=== PATIENT | male | born 1985 | race Caucasian/White ===

== ENCOUNTER 2017-01-19 09:41 | Emergency (ER) | payer OTHER ==
[2017-01-19 09:45] VITALS: BMI 24.2
[2017-01-19 09:46] VITALS: RESP 18; O2SAT 99
[2017-01-19] MEDS ORDERED: Sodium Chloride 0.9% 1,000 ML IV ONE (10:13)
[2017-01-19] MEDS ORDERED: Alum-Mag Hydrox-Simethicone Susp (30 mL) PO STA (10:15)
[2017-01-19] MEDS ORDERED: Sodium Chloride 0.9% 1,000 ML ONE (10:23)
[2017-01-19] MEDS ORDERED: Alum-Mag Hydrox-Simethicone Susp (30 mL) ONE (10:23)
--- NOTE | 2017-01-19 10:37 | C.PDOC ---
History Of Present Illness The patient, 31 y/o male, presents to the ED for evaluation of abdominal pain which began last night. Patient also reports associated nausea. Patient states he tried taking [place] but found no relief. When asked about his normal diet, patient states, " I eat everything and candy." He reports he was able to have a normal bowel movement today and denies fever, chills, vomiting, diarrhea , or testicular pain. Time Seen by Provider: 01/19/17 09:49 Chief Complaint (Nursing): Abdominal Pain History Per: Patient History/Exam Limitations: no limitations Onset/Duration Of Symptoms: Hrs Current Symptoms Are (Timing): Still Present Radiation Of Pain To:: None Quality Of Discomfort: "Pain" Associated Symptoms: Nausea. denies: Fever, Chills, Vomiting, Diarrhea Exacerbating Factors: None Alleviating Factors: None Last Bowel Movement: Today Additional History Per: Patient Past Medical History Reviewed: Historical Data, Nursing Documentation, Vital Signs Vital Signs: Last Vital Signs Temp 98.5 F 01/19/17 13:13 Pulse 61 01/19/17 13:13 Resp 18 01/19/17 13:13 BP 119/61 01/19/17 13:13 Pulse Ox 99 01/19/17 13:30 - Medical History PMH: No Chronic Diseases Surgical History: No Surg Hx Family History: States: Unknown Family Hx - Social History Hx Alcohol Use: Yes Hx Substance Use: No - Immunization History Hx Tetanus Toxoid Vaccination: No Hx Influenza Vaccination: No Hx Pneumococcal Vaccination: No Review Of Systems Except As Marked, All Systems Reviewed And Found Negative. Constitutional: Negative for: Fever, Chills Gastrointestinal: Positive for: Nausea, Abdominal Pain. Negative for: Vomiting , Diarrhea Physical Exam - Physical Exam Appears: Non-toxic, No Acute Distress Skin: Normal Color, Warm, Dry Head: Atraumatic, Normacephalic Eye(s): bilateral: Normal Inspection, EOMI Oral Mucosa: Moist Neck: Normal ROM, Supple Chest: Symmetrical, No Deformity, No Tenderness Cardiovascular: Rhythm Regular, No Murmur Respiratory: Normal Breath Sounds, No Rales, No Rhonchi, No Wheezing Gastrointestinal/Abdominal: Tenderness (to b/l lower quadrants on palpation ), No Guarding, No Rebound Back: Normal Inspection, No Vertebral Tenderness, No Paraspinal Tenderness Extremity: Normal ROM, Capillary Refill (less than 2 seconds) Neurological/Psych: Oriented x3, Normal Speech, Normal Cognition Gait: Steady ED Course And Treatment - Laboratory Results Result Diagrams: 01/19/17 10:43 01/19/17 10:43 O2 Sat by Pulse Oximetry: 99 (on RA) Pulse Ox Interpretation: Normal - Other Rad Abdomen Obstructive Series XR X-Ray: Interpreted by Me, Viewed By Me, Read By Radiologist Interpretation: Accession No. : [id number]. Patient Name / ID : KHURRAM HOWELL / [id number]. Exam Date : 01/19/2017 10:09:30 ( Approved ). Study Comment : Sex / Age : M / 31Y. Creator : Kareem Roy. Dictator : Kareem Roy. Metallurgical Laboratory Assistant : Collections Analyst : Kareem Roy. Approver2 : Report Date : 01/19/2017 12:44:43. My Comment : . PROCEDURE: Radiographs of the chest and abdomen (obstructive series). HISTORY: abd pain. COMPARISON: No prior. TECHNIQUE: AP radiograph of the chest, with upright and supine radiographs of the abdomen. FINDINGS: CHEST: Lungs: Clear. Cardiovascular: Normal size heart. No pulmonary vascular congestion. Pleura: No pleural fluid. No pneumothorax. Other findings: None. ABDOMEN AND PELVIS: Bowel: Unremarkable bowel gas pattern. No evidence of mechanical obstruction. Free air : None. Bones: Unremarkable. Other findings: None. IMPRESSION: Mild constipation. Otherwise unremarkable radiographs of chest and abdomen. No evidence of mechanical bowel obstruction. - CT Scan/US CT A/P Other Rad Studies (CT/US): Interpreted By Me, Read By Radiologist, Radiology Report Reviewed CT/US Interpretation: Accession No. : [id number]. Patient Name / ID : KHURRAM HOWELL / [id number]. Exam Date : 01/19/2017 11:46:33 ( Approved ). Study Comment : Sex / Age : M / 31Y. Creator : Kareem Roy. Dictator : Kareem Roy. Metallurgical Laboratory Assistant : Collections Analyst : Kareem Roy. Approver2 : Report Date : 01/19/2017 12:27:11. My Comment : . PROCEDURE: CT Abdomen and Pelvis with contrast. HISTORY: abd pain. COMPARISON: None. TECHNIQUE: Axial and reformatted coronal and sagittal CT images of the abdomen and pelvis were obtained after IV contrast administration. This CT exam was performed using one or more of the following dose reduction techniques: Automated exposure control, adjustment of the mA and/or kv according to patient size, and/ or use of iterative reconstruction technique. Contrast dose: 100 mL Visipaque 320. Radiation dose: Total exam DLP = 313.55 mGy-cm. FINDINGS: LOWER THORAX : Unremarkable. LIVER: Mild hepatomegaly noted. . No gross lesion or ductal dilatation. GALLBLADDER AND BILE DUCTS: Unremarkable. PANCREAS: Unremarkable. No gross lesion or ductal dilatation. SPLEEN: Unremarkable. ADRENALS: Unremarkable. No mass. KIDNEYS AND URETERS: Unremarkable. No hydronephrosis. No solid mass. VASCULATURE: Unremarkable. No aortic aneurysm. BOWEL: Boly-za-tjcejvql constipation more prominent at the ascending and transverse colon. The left colon is partially collapsed. There is no evidence of small bowel obstruction. APPENDIX: The appendix is not clearly visualized. No definite evidence of appendicitis. PERITONEUM: Unremarkable. No free fluid. No free air. LYMPH NODES: Unremarkable. No enlarged lymph nodes. BLADDER: Unremarkable. REPRODUCTIVE: Unremarkable. BONES: No acute fracture. OTHER FINDINGS: None. IMPRESSION: No definite evidence of appendicitis. Koyt-nm-czcjxzly right colon constipation. No evidence of bowel obstruction. Progress Note: labs, Obstructive Series XR, and CT A/P ordered and reviewed. Patient received Maalox PO, Protonox IV, Toradol IV, and IV Fluids. On re- evlauation, pt notes pain improvement. Tolerating PO. Copies of CT given, instructed follow up with PMD or return to ER if symptoms persist or worsen. Disposition - Disposition Disposition: HOME/ ROUTINE Disposition Time: 12:33 Condition: STABLE Additional Instructions: Increase fiber in your diet and water. Follow up with your primary medical doctor or clinic in 2-5 days for further evaluation. Take medications as prescribed. Return to the emergency department at any time if symptoms persist or worsen. Prescriptions: Polyethylene Glycol 3350 [Miralax] 17 gm PO DAILY #85 gm Instructions: Constipation (ED), High Fiber Diet (ED) Forms: Work Excuse - Clinical Impression Clinical Impression: Abdominal pain, Constipation - PA / BRAND ATTENDANT / Resident Statement MD/DO has reviewed & agrees with the documentation as recorded. - Scribe Statement The provider has reviewed the documentation as recorded by the Scribe (Karen Rodriguez) All medical record entries made by the Scribe were at my direction and personally dictated by me. I have reviewed the chart and agree that the record accurately reflects my personal performance of the history, physical exam, medical decision making, and the department course for this patient. I have also personally directed, reviewed, and agree with the discharge instructions and disposition.
[2017-01-19 10:49] LABS: BASO # 0.1 K/uL (0.0-0.2); BASO % 0.5 % (0.0-2.0); EOS # 0.2 K/uL (0.0-0.7); EOS % 1.4 % (0.0-4.0); HEMATOCRIT 46.8 % (35.0-51.0); LYMPH % 8.2 % (20.0-40.0); MEAN CELL VOLUME 89.3 fL (80.0-94.0); MEAN CORPUSCULAR HEMOGLOBIN 28.9 pg (27.0-31.0); MEAN CORPUSCULAR HGB CONC 32.4 g/dL (33.0-37.0); MEAN PLATELET VOLUME 8.8 fL (7.2-11.7); MONO # 0.6 K/uL (0.0-0.8); PLATELET COUNT 276 K/uL (130-400); RED CELL DISTRIBUTION WIDTH 13.2 % (11.5-14.5); WHITE BLOOD COUNT 12.1 K/uL (4.8-10.8)
[2017-01-19 10:54] LABS: RBC URINE 1 /hpf (0-3); URINE BILIRUBIN NEGATIVE (NEGATIVE); URINE BLOOD NEGATIVE (NEGATIVE); URINE COLOR Yellow (YELLOW); URINE GLUCOSE (UA) NORMAL (Normal); URINE KETONE NEGATIVE (NEGATIVE); URINE LEUKOCYTE ESTERASE NEG Leu/uL (Negative); URINE PROTEIN NEGATIVE (NEGATIVE); URINE UROBILINOGEN NORMAL mg/dL (0.2-1.0); WBC URINE < 1 /hpf (0-5)
[2017-01-19 10:56] LABS: CHLORIDE 95 mmol/L (98-107)
[2017-01-19 10:57] LABS: POTASSIUM 3.6 mmol/L (3.6-5.2); SODIUM 140 mmol/L (132-148)
[2017-01-19 10:59] LABS: ALB/GLOB RATIO 1.3 (1.0-2.1); ALKALINE PHOSPHATASE 52 U/L (38-126); ALT/SGPT 25 U/L (21-72); AST/SGOT 30 U/L (17-59); BILIRUBIN,TOTAL 0.4 mg/dL (0.2-1.3); BLOOD UREA NITROGEN 13 mg/dL (9-20); CALCIUM 8.9 mg/dl (8.6-10.4); CARBON DIOXIDE 29 mmol/L (22-30); GFR AFRICAN-AMERICAN > 60; GLUCOSE,RANDOM 91 mg/dL (75-110); TOTAL PROTEIN 7.8 g/dL (6.3-8.3)
[2017-01-19] MEDS ORDERED: Morphine 4 MG/ML VIAL ONE (11:16)
[2017-01-19 11:27] LABS: EOSINOPHIL 1 % (0-4); NEUTROPHIL 83 % (50-75); TOTAL CELLS COUNTED 100
[2017-01-19] MEDS ORDERED: Iodixanol 320 MG/ML 100 ML BOTTLE IV ONE (11:27)
--- NOTE | 2017-01-19 12:28 | CT ---
PROCEDURE: CT Abdomen and Pelvis with contrast HISTORY: abd pain COMPARISON: None. TECHNIQUE: Axial and reformatted coronal and sagittal CT images of the abdomen and pelvis were obtained after IV contrast administration. This CT exam was performed using one or more of the following dose reduction techniques: Automated exposure control, adjustment of the mA and/or kv according to patient size, and/or use of iterative reconstruction technique. Contrast dose: 100 mL Visipaque 320 Radiation dose: Total exam DLP = 313.55 mGy-cm. FINDINGS: LOWER THORAX: Unremarkable. LIVER: Mild hepatomegaly noted. . No gross lesion or ductal dilatation. GALLBLADDER AND BILE DUCTS: Unremarkable. PANCREAS: Unremarkable. No gross lesion or ductal dilatation. SPLEEN: Unremarkable. ADRENALS: Unremarkable. No mass. KIDNEYS AND URETERS: Unremarkable. No hydronephrosis. No solid mass. VASCULATURE: Unremarkable. No aortic aneurysm. BOWEL: Xlon-ct-yhxhfceu constipation more prominent at the ascending and transverse colon. The left colon is partially collapsed. There is no evidence of small bowel obstruction. APPENDIX: The appendix is not clearly visualized. No definite evidence of appendicitis. PERITONEUM: Unremarkable. No free fluid. No free air. LYMPH NODES: Unremarkable. No enlarged lymph nodes. BLADDER: Unremarkable. REPRODUCTIVE: Unremarkable. BONES: No acute fracture. OTHER FINDINGS: None. IMPRESSION: No definite evidence of appendicitis. Ovdj-ou-rtnydtkv right colon constipation. No evidence of bowel obstruction.
--- NOTE | 2017-01-19 12:46 | RAD ---
PROCEDURE: Radiographs of the chest and abdomen (obstructive series) HISTORY: abd pain COMPARISON: No prior. TECHNIQUE: AP radiograph of the chest, with upright and supine radiographs of the abdomen. FINDINGS: CHEST: Lungs: Clear. Cardiovascular: Normal size heart. No pulmonary vascular congestion. Pleura: No pleural fluid. No pneumothorax. Other findings: None. ABDOMEN AND PELVIS: Bowel: Unremarkable bowel gas pattern. No evidence of mechanical obstruction. Free air: None. Bones: Unremarkable. Other findings: None. IMPRESSION: Mild constipation. Otherwise unremarkable radiographs of chest and abdomen. No evidence of mechanical bowel obstruction.
[2017-01-19] MEDS ORDERED: Magnesium Citrate Oral SOL (300 ml) PO ONE (12:48)
[2017-01-19] MEDS ORDERED: Magnesium Citrate Oral SOL (300 ml) ONE (13:02)
[2017-01-19 13:14] VITALS: BP 119/61; PULSE 61; TEMP 98.5
== END 2017-01-19 13:14 | disposition home or self-care (01) ==
LOC: C.ER 09:41
DX: K59.00 Constipation, unspecified (principal)
CPT/HCPCS: 74022; 74177; 80053; 81001; 83690; 85025; 96361; 96374; 96375; 99285; C9113; J1885; J2270; J7040; Q9967

== ENCOUNTER 2017-03-09 08:55 | Emergency (ER) | payer SELFPAY ==
[2017-03-09 08:55] VITALS: BMI 24.2
[2017-03-09 09:02] VITALS: TEMP 98.2; O2SAT 100
--- NOTE | 2017-03-09 09:17 | C.PDOC ---
History Of Present Illness 31 year old patient presents to the ED complaining of sharp right sided chest pain for the past week. Patient reports he was pushing on a heavy trailer door that was stuck about 9 days ago. The pain began 2 days later. Patient states the pain is worse on deep inspiration and movement, but alleviated by rest. Patient denies any drug use, family history of cardiac hx early in life, numbness, weakness, nausea, vomiting or shortness of breath. Time Seen by Provider: 03/09/17 09:08 Chief Complaint (Nursing): Chest Pain History Per: Patient History/Exam Limitations: no limitations Onset/Duration Of Symptoms: Other (1 week) Current Symptoms Are (Timing): Still Present Context: Other Severity: Mild Pain Scale Rating Of: 3 Quality: Sharp, "Pain" Exacerbating Factors: Movement, Deep Breathing Alleviating Factors: Rest Recent travel outside of the [place]: No Past Medical History Reviewed: Historical Data, Nursing Documentation, Vital Signs Vital Signs: Last Vital Signs Temp 98.2 F 03/09/17 09:01 Pulse 66 03/09/17 11:30 Resp 19 03/09/17 11:30 BP 117/66 03/09/17 11:30 Pulse Ox 100 03/09/17 12:55 Family History: States: Unknown Family Hx - Social History Hx Alcohol Use: Yes Hx Substance Use: No - Immunization History Hx Tetanus Toxoid Vaccination: No Hx Influenza Vaccination: No Hx Pneumococcal Vaccination: No Review Of Systems Except As Marked, All Systems Reviewed And Found Negative. Cardiovascular: Positive for: Chest Pain (right sided) Respiratory: Negative for: Shortness of Breath Gastrointestinal: Negative for: Nausea, Vomiting Neurological: Negative for: Weakness, Numbness Physical Exam - Physical Exam Appears: Well, Non-toxic, No Acute Distress Skin: Warm, Dry Head: Atraumatic, Normacephalic Eye(s): bilateral: Normal Inspection Ear(s): Bilateral: Normal Nose: Normal Oral Mucosa: Moist Tongue: Normal Appearing Lips: Normal Appearing Throat: Normal Neck: Normal ROM, Supple Chest: Symmetrical, Tenderness (right side of chest on palpation) Cardiovascular: Rhythm Irregular Respiratory: Normal Breath Sounds, No Rales, No Rhonchi, No Wheezing Gastrointestinal/Abdominal: Soft, No Tenderness Back: Normal Inspection, No CVA Tenderness Extremity: Normal ROM Neurological/Psych: Oriented x3, Normal Speech, Normal Motor, Normal Sensation Gait: Steady ED Course And Treatment - Laboratory Results Result Diagrams: 03/09/17 09:26 03/09/17 09:26 Lab Interpretation: No Acute Changes ECG: Viewed By Me (and Dr. Martin) ECG Rhythm: Sinus Bradycardia (with sinus arrhythmia) Rate From EC (bpm) O2 Sat by Pulse Oximetry: 100 (room air) Pulse Ox Interpretation: Normal - Radiology CXR: Interpreted by Me CXR Interpretation: Yes: No Acute Disease Progress Note: Plan: VBG, EKG, Labs, Chest x-ray, Toradol Disposition Counseled Patient/Family Regarding: Studies Performed, Diagnosis, Need For Followup, Rx Given - Disposition Referrals: [facility] [Outside] [facility] [Outside] Elia Esparza MD [Staff Provider] - Disposition: HOME/ ROUTINE Disposition Time: 11:02 Condition: STABLE Additional Instructions: FOLLOW UP WITH PMD/CLINIC AND DIRECTOR OF GROUP COUNSELING PROGRAM FOR FURTHER EVALUATION AND TREATMENT. IF SYMPTOMS GET WORSE OR ANY NEW CONCERNING SYMPTOMS DEVELOP RETURN TO ED. Prescriptions: Ibuprofen [Motrin Tab] 1 tab PO Q6H PRN #15 tab PRN Reason: Pain, Moderate (4-7) Instructions: Costochondritis (ED), Bradycardia (ED) Forms: General Discharge Instructions, Work Excuse - Clinical Impression Clinical Impression: Costochondritis, Bradycardia - PA / RETAIL MERCHANDISING SPECIALIST / Resident Statement MD/DO has reviewed & agrees with the documentation as recorded. - Scribe Statement The provider has reviewed the documentation as recorded by the Scribe Jennifer Rodriguez All medical record entries made by the Scribe were at my direction and personally dictated by me. I have reviewed the chart and agree that the record accurately reflects my personal performance of the history, physical exam, medical decision making, and the department course for this patient. I have also personally directed, reviewed, and agree with the discharge instructions and disposition.
[2017-03-09 09:33] LABS: VENOUS BLOOD GAS BASE EXCESS 1.6 mmol/L (0.0-2.0); VENOUS BLOOD GAS PCO2 56 mmHg (40-60); VENOUS BLOOD PH 7.32 (7.32-7.43)
[2017-03-09 09:34] LABS: EOS # 0.2 K/uL (0.0-0.7); EOS % 5.3 % (0.0-4.0); HEMATOCRIT 46.2 % (35.0-51.0); LYMPH # 1.3 K/uL (1.0-4.3); LYMPH % 30.9 % (20.0-40.0); MEAN CELL VOLUME 88.8 fL (80.0-94.0); MEAN CORPUSCULAR HEMOGLOBIN 29.3 pg (27.0-31.0); MEAN PLATELET VOLUME 8.4 fL (7.2-11.7); MONO # 0.3 K/uL (0.0-0.8); MONO % 7.8 % (0.0-10.0)
[2017-03-09 09:40] LABS: WHITE BLOOD COUNT 4.2 K/uL (4.8-10.8)
[2017-03-09 09:41] LABS: CHLORIDE 100 mmol/L (98-107)
[2017-03-09 09:42] LABS: POTASSIUM 4.4 mmol/L (3.6-5.2); SODIUM 141 mmol/L (132-148)
[2017-03-09 09:44] LABS: BILIRUBIN,TOTAL 0.8 mg/dL (0.2-1.3); CARBON DIOXIDE 30 mmol/L (22-30); GFR AFRICAN-AMERICAN > 60
[2017-03-09 09:45] LABS: ALB/GLOB RATIO 1.5 (1.0-2.1); ALKALINE PHOSPHATASE 45 U/L (38-126); ALT/SGPT 21 U/L (21-72); AST/SGOT 35 U/L (17-59); BLOOD UREA NITROGEN 12 mg/dL (9-20); CALCIUM 9.1 mg/dl (8.6-10.4); GLUCOSE,RANDOM 85 mg/dL (75-110); TOTAL PROTEIN 7.8 g/dL (6.3-8.3)
--- NOTE | 2017-03-09 11:23 | RAD ---
PROCEDURE: CHEST RADIOGRAPH, 1 VIEW HISTORY: chest pain COMPARISON: None available. FINDINGS: LUNGS: Mild venous congestion. PLEURA: No pneumothorax or pleural fluid seen. CARDIOVASCULAR: Normal. OSSEOUS STRUCTURES: No significant abnormalities. VISUALIZED UPPER ABDOMEN: Normal. OTHER FINDINGS: None. IMPRESSION: Mild venous congestion.
[2017-03-09 11:36] VITALS: BP 117/66; PULSE 66; RESP 19
--- NOTE | 2017-03-10 14:19 | CARD ---
APPROVED REPORT EKG Measurement Heart [id number] CT 126P77 [id number] <Conclusion> Sinus bradycardia with sinus arrhythmia Early repolarization Otherwise normal ECG
== END 2017-03-09 11:30 | disposition home or self-care (01) ==
LOC: C.ER 08:55
DX: M94.0 Chondrocostal junction syndrome [Tietze] (principal); R00.1 Bradycardia, unspecified
CPT/HCPCS: 71010; 80053; 82803; 84484; 85025; 93005; 96374; 99284; J1885

== ENCOUNTER 2017-07-01 07:36 | Emergency (ER) | payer OTHER ==
[2017-07-01 07:37] VITALS: BMI 24.2
[2017-07-01 07:46] VITALS: RESP 18
[2017-07-01] MEDS ORDERED: Sodium Chloride 0.9% 1,000 ML IV ONE (07:58)
[2017-07-01] MEDS ORDERED: Lidocaine 2% Inj (20ml) INFIL ONE (07:59)
[2017-07-01] MEDS ORDERED: HYDROmorphone 1 mg/ml ISec IVP STA ×2 (08:00→09:14)
[2017-07-01] MEDS ORDERED: Lidocaine 2% Inj (20ml) ONE (08:06)
[2017-07-01] MEDS ORDERED: HYDROmorphone 1 mg/ml ISec IM STA (08:12)
--- NOTE | 2017-07-01 08:12 | C.PDOC ---
History Of Present Illness 31 yo male come in for evaluation of Right facial painful mass gradually developed for past 3-4 days. Pt sts, " tried to squeeze it yesterday and it got worse today". Otherwise, pt denies previous sx in past, denies high fever, chills, headache, dizziness, visual changes, focal deficits, trismus, drooling, dysphagia, dyspnea, denies any other active complaints. Ambulate to ED for evaluation, not in any apparent distress. Time Seen by Provider: 07/01/17 07:49 Chief Complaint (Nursing): Abnormal Skin Integrity History Per: Patient Onset/Duration Of Symptoms: Gradual Past Medical History Reviewed: Historical Data, Nursing Documentation, Vital Signs Vital Signs: Last Vital Signs Temp 98.0 F 07/01/17 10:19 Pulse 80 07/01/17 10:19 Resp 18 07/01/17 10:19 BP 120/67 07/01/17 10:19 Pulse Ox 95 07/01/17 10:19 - Medical History PMH: No Chronic Diseases Surgical History: No Surg Hx Family History: States: No Known Family Hx - Social History Hx Tobacco Use: Yes Hx Alcohol Use: Yes Hx Substance Use: No - Immunization History Hx Tetanus Toxoid Vaccination: No Hx Influenza Vaccination: No Hx Pneumococcal Vaccination: No Review Of Systems Except As Marked, All Systems Reviewed And Found Negative. Constitutional: Negative for: Fever, Chills, Malaise ENT: Positive for: Other (Right facial swelling ). Negative for: Ear Discharge , Nose Discharge, Mouth Pain, Mouth Swelling, Throat Pain, Throat Swelling Cardiovascular: Negative for: Chest Pain Respiratory: Negative for: Cough, Shortness of Breath Gastrointestinal: Negative for: Nausea, Vomiting, Abdominal Pain, Diarrhea Skin: Positive for: Lesions Neurological: Negative for: Weakness, Numbness, Incoordination, Altered Mental Status, Headache, Dizziness Physical Exam - Physical Exam Appears: Well, Non-toxic, No Acute Distress Skin: Normal Color, Warm, Dry, Other ((+)Right mandibular tender mass 3#3 cm diameter (+) erythema, (+) flatulance, (+) diffuse Right lower facial edema, no proximal streaking.) Head: Normacephalic Eye(s): bilateral: PERRL Nose: No Flaring, No Discharge Oral Mucosa: Moist, No Drooling, No Trismus Tongue: Normal Appearing Lips: Normal Appearing Throat: No Erythema, No Exudate, No Drooling Neck: Supple Lymphatic: Adenopathy (Right submandibular) Cardiovascular: Rhythm Regular Respiratory: No Stridor, No Wheezing Extremity: Normal ROM, No Pedal Edema, No Deformity Neurological/Psych: Oriented x3, Normal Speech, Normal Motor, Normal Sensation, Normal Reflexes ED Course And Treatment - Laboratory Results Result Diagrams: 07/01/17 08:33 07/01/17 08:33 Lab Interpretation: No Acute Changes O2 Sat by Pulse Oximetry: 99 Pulse Ox Interpretation: Normal Progress Note: case discussed with residential program director and abscess I&D performed at bedside by surgical sales representative. On re-eavl at 10:00, pt restint comfortably, not in any apparent distress. Afebrile, hemodynamicaly stable. Pt tolerate Po well in ED. Non-toxic. PulsEOx 99% RA. Head: AT/NC. ENT: (+) Right lower facial abscess s/p I&D, no drooling, no trismus. Uvula midline, no edema. Neck: Supple, (+) mild Right submandibular LDN. Lungs: CTA B/L, BS equal B/L. Neurologicaly intact. Blood work review and no acute leukocytosis noted. Blood Cx- pending. Pt received Clindamycin. Pt advised on course of ds , wound care. ref. to return to ED in 2 days for wound re-evaluation. Return to Ed at any time if any worsening or new changes. Pt understand and agrees with discharges. Disposition Counseled Patient/Family Regarding: Studies Performed, Diagnosis, Need For Followup, Rx Given - Disposition Referrals: Lino Morales MD [Staff Provider] - Disposition: HOME/ ROUTINE Disposition Time: 10:07 Condition: STABLE Additional Instructions: Take medication as prescribed return to ED in 2 days for wound check. return to Ed at any time if any worsening or new changes. Prescriptions: Clindamycin [Cleocin] 300 mg PO Q6 #28 cap traMADol [Ultram] 50 mg PO TID #7 tab Instructions: Abscess Incision and Drainage (ED) Forms: [employer] (Italian), Work Excuse - Clinical Impression Clinical Impression: Abscess
[2017-07-01] MEDS ORDERED: Clindamycin 600mg/50ml NS 0 MG/0 ML BAG IVPB ONE (08:15)
[2017-07-01] MEDS ORDERED: Sodium Chloride 0.9% 1,000 ML ONE (08:15)
[2017-07-01 08:40] LABS: BASO % 0.4 % (0.0-2.0); EOS # 0.1 K/uL (0.0-0.7); EOS % 0.8 % (0.0-4.0); HEMATOCRIT 45.6 % (35.0-51.0); LYMPH # 0.9 K/uL (1.0-4.3); LYMPH % 8.8 % (20.0-40.0); MEAN CELL VOLUME 89.3 fL (80.0-94.0); MEAN CORPUSCULAR HEMOGLOBIN 29.9 pg (27.0-31.0); MEAN CORPUSCULAR HGB CONC 33.5 g/dL (33.0-37.0); MEAN PLATELET VOLUME 8.6 fL (7.2-11.7); MONO # 0.7 K/uL (0.0-0.8); MONO % 6.9 % (0.0-10.0); PLATELET COUNT 292 K/uL (130-400); RED CELL DISTRIBUTION WIDTH 13.4 % (11.5-14.5); WHITE BLOOD COUNT 10.7 K/uL (4.8-10.8)
[2017-07-01 09:02] LABS: CHLORIDE 101 mmol/L (98-107); POTASSIUM 4.6 mmol/L (3.6-5.2); SODIUM 141 mmol/L (132-148)
[2017-07-01 09:05] LABS: CARBON DIOXIDE 29 mmol/L (22-30); GFR AFRICAN-AMERICAN > 60
[2017-07-01 09:06] LABS: BLOOD UREA NITROGEN 11 mg/dL (9-20); CALCIUM 9.5 mg/dl (8.6-10.4); GLUCOSE,RANDOM 86 mg/dL (75-110)
[2017-07-01 09:41] LABS: EOSINOPHIL 1 % (0-4); NEUTROPHIL 83 % (50-75); TOTAL CELLS COUNTED 100
[2017-07-01 10:20] VITALS: BP 120/67; PULSE 80; TEMP 98
[2017-07-01 11:27] VITALS: O2SAT 99
== END 2017-07-01 11:38 | disposition home or self-care (01) ==
LOC: C.ER 07:36
DX: L02.01 Cutaneous abscess of face (principal)
CPT/HCPCS: 10060; 80048; 85025; 87040; 96361; 96365; 96372; 96375; 99283; J1170; J2930; J7040

== ENCOUNTER 2017-07-02 10:36 | Emergency (ER) | payer OTHER ==
[2017-07-02 10:36] VITALS: BMI 24.2
[2017-07-02 10:45] VITALS: TEMP 98.5; O2SAT 98
--- NOTE | 2017-07-02 11:30 | C.PDOC ---
History Of Present Illness 31 year old male presents to the ER for wound check. Patient was seen in the ER yesterday for abscess to right side of face and had an I&D done by the executive vice president of sales. Patient is compliant with his antibiotics and medications. Patient notes mild pain to the area without any discharge. Patient denies fever or chills. Time Seen by Provider: 07/02/17 11:11 Chief Complaint (Nursing): Wound Check History Per: Patient History/Exam Limitations: no limitations Onset/Duration Of Symptoms: Days Ago (Yesterday), Abscess Current Symptoms Are (Timing): Still Present Severity: Mild Recent travel outside of the [place]: No Additional History Per: Patient Past Medical History Reviewed: Historical Data, Nursing Documentation, Vital Signs Vital Signs: Last Vital Signs Temp 98.5 F 07/02/17 10:44 Pulse 70 07/02/17 11:36 Resp 16 07/02/17 11:36 BP 118/79 07/02/17 11:36 Pulse Ox 98 07/02/17 12:03 Family History: States: Unknown Family Hx - Social History Hx Tobacco Use: Yes Hx Alcohol Use: Yes Hx Substance Use: No - Immunization History Hx Tetanus Toxoid Vaccination: No Hx Influenza Vaccination: No Hx Pneumococcal Vaccination: No Review Of Systems Except As Marked, All Systems Reviewed And Found Negative. Constitutional: Negative for: Fever, Chills Skin: Positive for: Other Physical Exam - Physical Exam Appears: Non-toxic, No Acute Distress Skin: Warm, Dry, Other (Incisional wound to the right lower face. Wound packing in place. No erythema. No swelling.) Head: Atraumatic, Normacephalic Eye(s): bilateral: Normal Inspection, EOMI Oral Mucosa: Moist Throat: Normal, No Erythema Neck: Normal ROM Chest: Symmetrical Extremity: Bilateral: Atraumatic Neurological/Psych: Oriented x3, Normal Speech Gait: Steady ED Course And Treatment O2 Sat by Pulse Oximetry: 98 (RA) Pulse Ox Interpretation: Normal Medical Decision Making Medical Decision Making: Impression: * Wound check for I&D done to an abscess to the right side of the face yesterday Prior records reviewed: * Patient was seen in ED yesterday for abscess to right side of face and had I& D by executive vice president of sales. Patient presents for wound check. Plan: * Wound clean * Reassess Progress, Reassess and Dispo: Wound packing was removed by me, and area irrigated with NS. No purulent discharge expressed. Area cleansed and sterile dressing applied. Patient advised to keep area clean and dry and to finish antibiotics. Instruct to change dressing daily. Disposition Counseled Patient/Family Regarding: Diagnosis, Need For Followup - Disposition Referrals: [facility] [Outside] Disposition: HOME/ ROUTINE Disposition Time: 11:28 Condition: STABLE Additional Instructions: Keep area clean and dry. May wash gently with soap and water, do not use alcohol or iodine solution. Change dressing 1-2 times daily. Finish course of antibiotics. Return to hospital for any concerning symptoms Instructions: Acute Wound Care (ED) Forms: [employer] (Micronesian) - POA Present On Arrival: None - Clinical Impression Clinical Impression: Encounter for abscess packing removal - Scribe Statement The provider has reviewed the documentation as recorded by the Scribe Royal davenport All medical record entries made by the Scribe were at my direction and personally dictated by me. I have reviewed the chart and agree that the record accurately reflects my personal performance of the history, physical exam, medical decision making, and the department course for this patient. I have also personally directed, reviewed, and agree with the discharge instructions and disposition.
[2017-07-02 11:36] VITALS: BP 118/79; PULSE 70; RESP 16
== END 2017-07-02 11:36 | disposition home or self-care (01) ==
LOC: C.ER 10:36
DX: Z48.00 Encounter for change or removal of nonsurgical wound dressing (principal)

== ENCOUNTER 2017-10-02 04:03 | Emergency (ER) | payer OTHER ==
[2017-10-02 04:04] VITALS: BMI 24.2
[2017-10-02 04:23] VITALS: RESP 16; O2SAT 100
[2017-10-02] MEDS ORDERED: Apap-Butalbital-Caffeine 325-50-40mg Tab PO STA (05:47)
[2017-10-02] MEDS ORDERED: Apap-Butalbital-Caffeine 325-50-40mg Tab ONE (05:56)
[2017-10-02 06:35] VITALS: BP 125/79; PULSE 56; TEMP 98.8
--- NOTE | 2017-10-02 06:47 | C.PDOC ---
History Of Present Illness 32 year old male presents to the ED for evaluation of right-sided fontal headache which began 4 days ago. Patient states the pain is over his right eye and radiates to the back of his head. Patient notes history of similar symptoms in the past, and reports current symptoms are similar. He denies fever, chills, vision change, dizziness, nausea, vomiting, extremity numbness/weakness. Time Seen by Provider: 10/02/17 04:43 Chief Complaint (Nursing): Headache History Per: Patient History/Exam Limitations: no limitations Onset/Duration Of Symptoms: Days (4) Current Symptoms Are (Timing): Still Present Quality: Aching Associated Symptoms: denies: Nausea, Vomiting Additional History Per: Patient Past Medical History Reviewed: Historical Data, Nursing Documentation, Vital Signs Vital Signs: Last Vital Signs Temp 98.8 F 10/02/17 06:34 Pulse 56 L 10/02/17 06:34 Resp 16 10/02/17 06:34 BP 125/79 10/02/17 06:34 Pulse Ox 100 10/02/17 07:18 - Medical History PMH: No Chronic Diseases Surgical History: No Surg Hx Family History: States: Unknown Family Hx - Social History Hx Tobacco Use: Yes Hx Alcohol Use: Yes Hx Substance Use: No - Immunization History Hx Tetanus Toxoid Vaccination: No Hx Influenza Vaccination: No Hx Pneumococcal Vaccination: No Review Of Systems Eyes: Negative for: Vision Change Gastrointestinal: Negative for: Nausea, Vomiting Neurological: Positive for: Headache (right-sided ). Negative for: Dizziness Physical Exam - Physical Exam Appears: Non-toxic, No Acute Distress Skin: Normal Color, Warm, Dry, No Pale, No Rash Head: Atraumatic, Normacephalic, Other (no temporal artery tenderness) Eye(s): bilateral: Normal Inspection, PERRL, EOMI Ear(s): Bilateral: Normal Nose: Normal, No Discharge Oral Mucosa: Moist Throat: Normal, No Erythema, No Exudate Neck: Normal ROM, Supple Chest: Symmetrical, No Deformity, No Tenderness Cardiovascular: Rhythm Regular, No Friction Rub, No Murmur Respiratory: Normal Breath Sounds, No Rales, No Rhonchi, No Wheezing Gastrointestinal/Abdominal: Bowel Sounds (active), Soft, No Tenderness Back: Normal Inspection, No CVA Tenderness Extremity: Normal ROM, Capillary Refill (less than 2 seconds ), No Swelling Neurological/Psych: Oriented x3, Normal Speech, Normal Cognition, Normal Motor, Other (no focal deficits ) Gait: Steady ED Course And Treatment O2 Sat by Pulse Oximetry: 100 (on RA) Pulse Ox Interpretation: Normal Medical Decision Making Medical Decision Making: Fioricet PO and Reglan PO administered. On re-exam, the patient reports improvement of symptoms. Abdomen is soft, non-tender and tolerating PO well. Lungs are CTA, heart is RRR, Ambulatory in the ED with steady gait. Disposition - Disposition Referrals: [facility] [Outside] Disposition: HOME/ ROUTINE Disposition Time: 06:44 Condition: GOOD Additional Instructions: Follow up with the medical doctor within 1-2 days, return if worsened. 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 - Scribe Statement The provider has reviewed the documentation as recorded by the Scribe (Karen Rodriguez) All medical record entries made by the Scribe were at my direction and personally dictated by me. I have reviewed the chart and agree that the record accurately reflects my personal performance of the history, physical exam, medical decision making, and the department course for this patient. I have also personally directed, reviewed, and agree with the discharge instructions and disposition.
== END 2017-10-02 06:52 | disposition home or self-care (01) ==
LOC: C.ER 04:03
DX: R51 Headache (principal); Z87.891 Personal history of nicotine dependence

== ENCOUNTER 2017-11-22 01:18 | Emergency (ER) | payer MEDICAID, OTHER ==
[2017-11-22 01:19] VITALS: BMI 24.2
[2017-11-22 01:32] VITALS: BP 107/61; PULSE 73; RESP 16; TEMP 97.6; O2SAT 97
[2017-11-22] MEDS ORDERED: guaiFENesin DM 100 mg-10 mg/5 ml UD PO STA (01:50)
--- NOTE | 2017-11-22 01:53 | C.PDOC ---
History Of Present Illness 32 year old male presents to the ED for evaluation of a cough for the past week. Patient reports the cough is worsening now productive with yellowish sputum. Patient states he has not taken any medication for his symptoms. Patient denies fever, chills, CP, SOB, sick contacts. Time Seen by Provider: 11/22/17 01:36 Chief Complaint (Nursing): Cough, Cold, Congestion History Per: Patient History/Exam Limitations: no limitations Onset/Duration Of Symptoms: Days Current Symptoms Are (Timing): Still Present Location Of Pain: Throat Sick Contacts (Context): None Associated Symptoms: Cough, Sputum Ear Symptoms: Bilateral: None Severity: None Recent travel outside of the [place]: No Additional History Per: Patient Past Medical History Reviewed: Historical Data, Nursing Documentation, Vital Signs Vital Signs: Last Vital Signs Temp 97.6 F 11/22/17 01:29 Pulse 73 11/22/17 01:29 Resp 16 11/22/17 01:29 BP 107/61 11/22/17 01:29 Pulse Ox 97 11/22/17 02:00 - Medical History PMH: No Chronic Diseases Denies: Chronic Kidney Disease Surgical History: No Surg Hx Family History: States: Unknown Family Hx - Social History Hx Tobacco Use: Yes Hx Alcohol Use: Yes Hx Substance Use: No - Immunization History Hx Tetanus Toxoid Vaccination: No Hx Influenza Vaccination: No Hx Pneumococcal Vaccination: No Review Of Systems Constitutional: Negative for: Fever, Chills ENT: Negative for: Ear Pain, Nose Discharge, Throat Pain, Throat Swelling Cardiovascular: Negative for: Chest Pain Respiratory: Positive for: Cough, Sputum. Negative for: Shortness of Breath Gastrointestinal: Negative for: Vomiting, Abdominal Pain Skin: Negative for: Rash Neurological: Negative for: Weakness, Numbness, Headache Physical Exam - Physical Exam Appears: Non-toxic, No Acute Distress Skin: Normal Color, Warm, Dry Head: Atraumatic, Normacephalic Eye(s): bilateral: Normal Inspection Ear(s): Bilateral: Normal Nose: No Discharge, No Deformity Oral Mucosa: Moist Throat: Normal, No Erythema, No Exudate Neck: Normal ROM, Supple Chest: Symmetrical Cardiovascular: Rhythm Regular, No Murmur Respiratory: Normal Breath Sounds, No Rales, No Rhonchi, No Wheezing Gastrointestinal/Abdominal: Soft, No Tenderness, No Guarding, No Rebound Extremity: Normal ROM, No Deformity, No Swelling Neurological/Psych: Oriented x3, Normal Speech, Other (No focal deficits) Gait: Steady ED Course And Treatment O2 Sat by Pulse Oximetry: 97 (On RA) Pulse Ox Interpretation: Normal Medical Decision Making Medical Decision Making: Impression: worsening productive cough Plan: * Zithromax 500 mg PO * Robitussin 5 ml PO Re-Eval: Patient resting comfortably in no respiratory distress. He has no fever and lungs clear bilaterally. Patient stable for discharge and asking for work excuse. Rx given Disposition Counseled Patient/Family Regarding: Diagnosis, Need For Followup, Rx Given - Disposition [facility]Outside[facility] Disposition: HOME/ ROUTINE Disposition Time: 01:50 Condition: GOOD Additional Instructions: Follow up with your primary medical doctor or clinic in 2-5 days for further evaluation. Take medications as prescribed. Return to the emergency department at any time if symptoms persist or worsen. 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 - Scribe Statement The provider has reviewed the documentation as recorded by the Scribe Shankar Irene All medical record entries made by the Scribe were at my direction and personally dictated by me. I have reviewed the chart and agree that the record accurately reflects my personal performance of the history, physical exam, medical decision making, and the department course for this patient. I have also personally directed, reviewed, and agree with the discharge instructions and disposition.
[2017-11-22] MEDS ORDERED: guaiFENesin 100 mg/5 ml Syrup UD ONE (02:05)
== END 2017-11-22 02:07 | disposition home or self-care (01) ==
LOC: C.ER 01:18
DX: J06.9 Acute upper respiratory infection, unspecified (principal)

== ENCOUNTER 2018-09-19 09:06 | Emergency (ER) | payer MEDICAID, OTHER ==
[2018-09-19 09:16] VITALS: BP 118/69; PULSE 69; RESP 16; TEMP 98.1; O2SAT 100; BMI 22.9
[2018-09-19] MEDS ORDERED: Naproxen 550 mg Tab PO STA (09:48)
--- NOTE | 2018-09-19 09:48 | C.PDOC ---
History Of Present Illness 33 year old male presents to the emergency department with complaints of neck pain since this morning. Patient denies falling or trauma to the area. Patient reports decreased ROM to the neck. He denies taking any medications, fever, numbness, weakness, or shortness of breath. Time Seen by Provider: 09/19/18 09:20 Chief Complaint (Nursing): Back Pain History Per: Patient History/Exam Limitations: no limitations Current Symptoms Are (Timing): Still Present Quality Of Discomfort: Sharp, "Pain" Previous Symptoms: None Associated Symptoms: denies: New Weakness, New Numbness Exacerbating Factor(s): Turning, Movement Recent travel outside of the [place]: No Past Medical History Reviewed: Historical Data, Nursing Documentation, Vital Signs Vital Signs: Last Vital Signs Temp 98.1 F 09/19/18 09:13 Pulse 69 09/19/18 09:13 Resp 16 09/19/18 09:13 BP 118/69 09/19/18 09:13 Pulse Ox 100 09/19/18 09:13 - Medical History PMH: No Chronic Diseases Denies: Chronic Kidney Disease Surgical History: No Surg Hx Family History: States: No Known Family Hx - Social History Hx Tobacco Use: Yes Hx Alcohol Use: Yes Hx Substance Use: No - Immunization History Hx Tetanus Toxoid Vaccination: No Hx Influenza Vaccination: No Hx Pneumococcal Vaccination: No Review Of Systems Except As Marked, All Systems Reviewed And Found Negative. Constitutional: Negative for: Fever, Chills Eyes: Negative for: Pain, Eyelid Inflammation, Redness ENT: Negative for: Ear Pain Cardiovascular: Negative for: Chest Pain, Palpitations Respiratory: Negative for: Shortness of Breath Gastrointestinal: Negative for: Nausea, Vomiting Genitourinary: Negative for: Dysuria Musculoskeletal: Positive for: Neck Pain Skin: Negative for: Rash Neurological: Negative for: Weakness, Numbness Physical Exam - Physical Exam Appears: Non-toxic, No Acute Distress Skin: Warm, Dry, No Rash Head: Atraumatic, Normacephalic Eye(s): bilateral: Normal Inspection, PERRL, EOMI Oral Mucosa: Moist Throat: No Erythema, No Exudate Neck: Decreased ROM (tenderness with turning to the ipsilateral side of pain), Paracervical Tenderness (upon turning the neck towards the left), Other (positive muscle spasm to the left side of the neck) Lymphatic: Normal Exam Chest: Symmetrical, No Tenderness Cardiovascular: Rhythm Regular, No Friction Rub, No Murmur Respiratory: Normal Breath Sounds, No Wheezing Gastrointestinal/Abdominal: Bowel Sounds (active), Soft, No Tenderness Back: Normal Inspection, No CVA Tenderness Extremity: Normal ROM (all extremities), No Swelling Neurological/Psych: Oriented x3, Normal Speech, Normal Cognition, Normal Motor Gait: Steady ED Course And Treatment O2 Sat by Pulse Oximetry: 100 (RA) Pulse Ox Interpretation: Normal Progress Note: Plan: Naproxen 550mg PO. Flexeril 10mg PO Disposition - Disposition Referrals: Kimberli Cintron MD [Medical Doctor] - Disposition: HOME/ ROUTINE Disposition Time: 10:10 Condition: STABLE Additional Instructions: Follow up with the medical doctor within 1-2 days. Return if worsened. 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 - Scribe Statement The provider has reviewed the documentation as recorded by the Scribe (Marcello Stubbs) All medical record entries made by the Scribe were at my direction and personally dictated by me. I have reviewed the chart and agree that the record accurately reflects my personal performance of the history, physical exam, medical decision making, and the department course for this patient. I have also personally directed, reviewed, and agree with the discharge instructions and disposition.
[2018-09-19] MEDS ORDERED: Naproxen 550 mg Tab PO ONE (09:52)
== END 2018-09-19 10:21 | disposition home or self-care (01) ==
LOC: C.ER 09:06
DX: M43.6 Torticollis (principal)

== ENCOUNTER 2018-12-23 04:11 | Emergency (ER) | payer BC, MEDICAID ==
[2018-12-23 04:11] VITALS: BMI 24.2
[2018-12-23] MEDS ORDERED: Naproxen 550 mg Tab PO STA (04:49)
--- NOTE | 2018-12-23 05:08 | C.PDOC ---
History Of Present Illness 33 year old male presents to the ER with a complaint of left upper and left lower back pain for the past 2 weeks that worsens with bending. Patient states he works at [employer] and does heavy lifting. Denies neck pain, weakness, or numbness. Time Seen by Provider: 12/23/18 04:32 Chief Complaint (Nursing): Back Pain History Per: Patient History/Exam Limitations: no limitations Onset/Duration Of Symptoms: Days (2 weeks) Current Symptoms Are (Timing): Still Present Quality Of Discomfort: Unable To Describe Previous Symptoms: None Associated Symptoms: None. denies: Incontinence, New Weakness, New Numbness Exacerbating Factor(s): Other (Bending) Recent travel outside of the [place]: No Past Medical History Reviewed: Historical Data, Nursing Documentation, Vital Signs Vital Signs: Last Vital Signs Temp 98.4 F 12/23/18 04:28 Pulse 70 12/23/18 04:28 Resp 20 12/23/18 04:28 BP 115/73 12/23/18 04:28 Pulse Ox 97 12/23/18 04:28 - Medical History PMH: No Chronic Diseases Denies: Chronic Kidney Disease Family History: States: Unknown Family Hx - Social History Hx Tobacco Use: Yes Hx Alcohol Use: Yes Hx Substance Use: No - Immunization History Hx Tetanus Toxoid Vaccination: No Hx Influenza Vaccination: No Hx Pneumococcal Vaccination: No Review Of Systems Constitutional: Negative for: Fever, Chills Cardiovascular: Negative for: Chest Pain, Palpitations Respiratory: Negative for: Cough, Shortness of Breath Gastrointestinal: Negative for: Abdominal Pain Genitourinary: Negative for: Dysuria, Hematuria Musculoskeletal: Positive for: Back Pain. Negative for: Neck Pain Skin: Negative for: Rash Neurological: Negative for: Weakness, Numbness Physical Exam - Physical Exam Appears: Non-toxic Skin: Normal Color, Warm, Dry, No Rash Head: Atraumatic, Normacephalic Eye(s): bilateral: Normal Inspection Oral Mucosa: Moist Neck: Normal, No Midline Cervical Tenderness, No Paracervical Tenderness, Supple Chest: Symmetrical, No Tenderness Cardiovascular: Rhythm Regular Respiratory: Normal Breath Sounds, No Rales, No Rhonchi, No Wheezing Gastrointestinal/Abdominal: Soft, No Tenderness Back: No CVA Tenderness, No Vertebral Tenderness, Paraspinal Tenderness (Left thoracic with positive muscle spasm) Extremity: Normal ROM (x4), No Tenderness, No Swelling Neurological/Psych: Oriented x3, Normal Speech, Normal Motor, Normal Sensation Gait: Steady ED Course And Treatment O2 Sat by Pulse Oximetry: 97 (Room air) Pulse Ox Interpretation: Normal Medical Decision Making Medical Decision Making: Naproxen and prednisone administered. Patient reports improvement of pain, he is resting comfortably in no acute distress, ambulatory with steady gait, will discharge home with Rx and instructions to follow up with PMD. Disposition - Disposition Referrals: Gage Singh MD [Non-Staff] - Disposition: HOME/ ROUTINE Disposition Time: 05:09 Condition: GOOD Additional Instructions: Follow up with the medical doctor within 1-2 days, Return if worsened. 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 - Scribe Statement The provider has reviewed the documentation as recorded by the Scribe Jeff Forrest All medical record entries made by the Rileyibleticia were at my direction and personally dictated by me. I have reviewed the chart and agree that the record accurately reflects my personal performance of the history, physical exam, m edical decision making, and the department course for this patient. I have also personally directed, reviewed, and agree with the discharge instructions and disposition.
[2018-12-23 10:12] VITALS: BP 115/73; PULSE 70; RESP 20; TEMP 98.4; O2SAT 97
== END 2018-12-23 05:30 | disposition home or self-care (01) ==
LOC: C.ER 04:11
DX: M54.5 Low back pain (principal)